=== PATIENT | female | born 1945 | race Caucasian/White ===

== ENCOUNTER 2018-10-31 15:58 | Inpatient (IN) | payer OTHER ==
[~2018-10-31] VITALS: Ht 157.5 cm; Wt 74.8 kg
[~2018-10-31 15:58] MED LIST: ATORVASTATIN CA10 MG PO; CLONAZEPAM1 MG PO; GRALISE600 MG PO; METFORMIN HCL500 M3 PO; PROTONIX20 MG PO; TIROSINT75 MCG PO
[2018-11-11] MEDS ORDERED: OMEPRAZOLE20 MG PO (08:23)
== END 2018-11-12 09:23 | disposition home or self-care (01) | DRG 331 ==
LOC: O/R 11-08 04:55 → SURH 11-08 04:55 → O/R 11-08 07:00 → SURG 11-08 15:28 → O/R 11-08 17:18 → SURH 11-08 19:54
PROVIDERS: ADMIT Colon & Rectal Surgery
PROC: 0DJD8ZZ Inspection of Lower Intestinal Tract, Via Natural or Artificial Opening Endoscopic (ICD-10-PCS; 2018-11-08)
PROC: 0DTN4ZZ Resection of Sigmoid Colon, Percutaneous Endoscopic Approach (ICD-10-PCS; principal; 2018-11-08 07:00)
DX: K57.20 Diverticulitis of large intestine with perforation and abscess without bleeding (principal); E11.40 Type 2 diabetes mellitus with diabetic neuropathy, unspecified; I11.9 Hypertensive heart disease without heart failure; E78.00 Pure hypercholesterolemia, unspecified; Z79.4 Long term (current) use of insulin

== ENCOUNTER 2019-03-19 05:56 | Day surgery (SDC) | payer OTHER ==
[~2019-03-19 05:56] MED LIST changes: +OMEPRAZOLE20 MG PO
== END 2019-03-19 10:55 | disposition home or self-care (01) ==
LOC: AMB-ENDOS 05:56 → ADM 15:15 → AMB-ENDOS 15:15
DX: K62.89 Other specified diseases of anus and rectum (principal); K57.30 Diverticulosis of large intestine without perforation or abscess without bleeding; K64.8 Other hemorrhoids; Z12.11 Encounter for screening for malignant neoplasm of colon